=== PATIENT | male | born 1940 | race Caucasian/White ===

== ENCOUNTER → 2017-05-16 | Outpatient (CLI) | payer MEDICARE, BC ==
[~2017-05-16] MED LIST: ANALGESIC325 MG PO; BENAZEPRIL HCL10 MG PO; FLOMAX PO; METOPROLOL 50 M50 M1 PO; NIASPAN750 MG PO; NORCO 7.5-3251 EACH PO; OMEGA-31000 MG PO; PHENAZOPYRIDIN200 M2 PO; URISPAS100 MG PO; VYTORIN 10-401 EACH PO
--- NOTE | 2017-05-29 22:04 | ONC ---
[address] [address] RADIATION ONCOLOGY NOTE Name: VLADSAMEERA MERLIN Room: [facility].#: [id number] Admission: 05/16/17 Attend Phys: Omi Ferraro MD Discharge: Date of : 44 Report #: [id number] THIS REPORT FOR: //name// CC: Omi Garduno MD DATE OF SERVICE: 05/16/2017 REFERRING PHYSICIAN: Zuhair Garduno MD [facility] phone is [phone]. 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 The PSA was 12.4 on 02/11/2009. The Merry score was 4+3 equal 7. The patient received definitive radiation therapy with androgen suppression. The patient received Lupron on 02/13/[address] Osborne and a second Lupron injection was given around 05/2009 or 06/2009. The patient's definitive radiation treatments were completed on 05/20/2009. INTERVAL NOTE: The patient felt like he was emptying his bladder well. MEDICATIONS: Include Crestor, generic Zetia, benazepril, carvedilol, fish oil, aspirin, Eplerenone. 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 Cigarettes: he does not smoke. REVIEW OF SYSTEMS: GENITOURINARY: He has nocturia about every 2 hours and that has been stable since his last appointment. GASTROINTESTINAL: He has about 1 bowel movement a day and that has been stable. PHYSICAL EXAMINATION: VITAL SIGNS: The patient weighs 209.8 pounds on 05/16/2017 and 208 pounds on 05/07/2016, and on 05/16/2017 blood pressure was 111/60, pulse 54, respirations 24. BACK: No tenderness to palpation. HEART: Had a regular rate and rhythm without murmur. LUNGS: were clear to auscultation. RECTAL: Prostate was not enlarged. The patient was guaiac negative using [employer] Hemoccult cards from lot [id number] that expires in 05/2019, using [employer] Hemoccult developer from lot [id number] that expires in 12/2019. LABORATORY DATA: PSA from 05/03/2017 was 0.3. ASSESSMENT AND PLAN: [place] [address] RADIATION ONCOLOGY NOTE Name: SAMEERA CHU Room: [facility]#: [id number] Admission: 05/16/17 Attend Phys: Omi Ferraro MD Discharge: Date of : 44 Report #: [id number] 1. History of prostate cancer- There is no evidence of prostate cancer at this time. A requisition was written for a PSA in 04/2018. The patient was asked to schedule a follow up appointment to see me afterwards. 2. Hyperlipidemia- The patient takes Crestor under the guidance of his referring physicians. 3. Hypertension- The patient takes benazepril and that is managed by his referring physicians. Thank you for allowing me to participate in the care of this patient. <ELECTRONICALLY SIGNED> By: Omi Ferraro MD 05/29/17 2204 1627 1922Ddario Ferraro MD /nt
== END ==
LOC: M.RTH 05-11 09:30
DX: Z08 Encounter for follow-up examination after completed treatment for malignant neoplasm (principal); E78.5 Hyperlipidemia, unspecified; I10 Essential (primary) hypertension; Z85.46 Personal history of malignant neoplasm of prostate

== ENCOUNTER → 2018-05-12 | Outpatient (CLI) | payer MEDICARE, BC ==
--- NOTE | ~2018-05-12 | ONC ---
[address] [address] RADIATION ONCOLOGY NOTE Name: SAMEERA CHU Room: [facility]#: [id number] Admission: 05/12/18 Attend Phys: Omi Ferraro MD Discharge: Date of : 44 Report #: [id number] THIS REPORT FOR: //name// CC: Omi Ferraro NO PCP DATE OF SERVICE: 05/12/2018 REFERRING PHYSICIANS: Zuhair Garduno MD. [facility] phone is [phone]. PRIMARY SITE AND HISTOPATHOLOGY: The patient had a stage 2 T2a N0 M0 adenocarcinoma of the prostate. The PSA was 12.4 on 02/11/2009. The Merry score was 4+3 equal 7. The patient received definitive radiation therapy with androgen suppression. The patient received Lupron on 02/13/[address] Osborne and a second Lupron injection was given around 05/2009 or 06/2009. The patient's definitive radiation treatments were completed on 05/20/2009. INTERVAL NOTE: The patient felt like he was emptying his bladder well. He has a good appetite. MEDICATIONS: Include Crestor, Zetia, benazepril, carvedilol, fish oil, aspirin, eplerenone. 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 Cigarettes, he does not smoke cigarettes. REVIEW OF SYSTEMS: GENITOURINARY: He has nocturia about every 2 hours and has been stable since at least his last couple of appointments. GASTROINTESTINAL: He has about 1-2 bowel movements a day and that has been stable. PHYSICAL EXAMINATION: VITAL SIGNS: The patient weighed 217.6 pounds on 05/12/2018 and 209.8 pounds on 05/16/2017 and on 05/12/2018, blood pressure was 117/84, pulse 59, respirations 18, oxygen saturation 96%. BACK: No tenderness to palpation. HEART: Had a regular rate and rhythm without murmur. LUNGS: Clear to auscultation. RECTAL: Prostate was not enlarged. There were no palpable nodules. The patient was guaiac negative using [employer] Hemoccult cards from lot [id number] that in 05/2019, using [employer] Hemoccult developer from lot [id number] that expires in 12/2019. [place] [address] RADIATION ONCOLOGY NOTE Name: SAMEERA CHU Room: [facility]#: [id number] Admission: 05/12/18 Attend Phys: Omi Ferraro MD Discharge: Date of : 44 Report #: [id number] LABORATORY DATA: PSA on 05/02/2018 was 0.3. Prior PSA on 05/03/2017 was also 0.3. ASSESSMENT AND PLAN: 1. History of prostate cancer. There is no evidence of prostate cancer. The patient was given a requisition for a PSA in 04/2019 or 05/2019 and he was asked to schedule a followup appointment to see me afterwards. 2. Hyperlipidemia. The patient takes Crestor that is managed by his referring physicians. 3. Hypertension. The patient takes benazepril that is managed by his referring physicians. Thank you for allowing me to participate in the care of this patient. By: [id number] Ferraro MD /nt
== END ==
LOC: M.RTH 09:00
DX: Z08 Encounter for follow-up examination after completed treatment for malignant neoplasm (principal); I10 Essential (primary) hypertension; E78.5 Hyperlipidemia, unspecified; Z85.46 Personal history of malignant neoplasm of prostate

== ENCOUNTER → 2019-06-15 | Outpatient (CLI) | payer MEDICARE, BC ==
--- NOTE | 2019-06-16 22:55 | ONC ---
[place] [address] RADIATION ONCOLOGY NOTE Name: SAMEERA CHU Room: [facility]#: [id number] Admission: 06/15/19 Attend Phys: Omi Ferraro MD Discharge: Date of : 44 Report #: [id number] THIS REPORT FOR: //name// CC: Omi Garduno MD DATE OF SERVICE: 06/15/2019 RADIATION ONCOLOGY FOLLOWUP NOTE REFERRING PHYSICIAN: Zuhair Garduno MD. [facility], phone is [phone]. PRIMARY SITE AND HISTOPATHOLOGY: The patient had a stage T2a N0 M0 adenocarcinoma of the prostate. The PSA was 12.4 on 02/11/2009. The Merry score was 4+3 equal 7. The patient received definitive radiation therapy with androgen suppression. The patient received Lupron on 02/13/[address] Osborne and a second Lupron injection was given around 05/2009 or 06/2009. The patient's definitive radiation treatments were completed on 05/20/2009. INTERVAL NOTE: The patient felt like he was emptying his bladder well. He has a good appetite. MEDICATIONS: Crestor, Zetia, benazepril, carvedilol, fish oil, aspirin and eplerenone. 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 Cigarettes; he does not smoke cigarettes. REVIEW OF SYSTEMS: GENITOURINARY: He has nocturia about every 2 hours and has been stable since at least his last couple of appointments. GASTROINTESTINAL: He has about 1-2 bowel movements a day and that has been stable. PHYSICAL EXAMINATION: VITAL SIGNS: The patient weighed 203.4 pounds on 06/15/2019, he was 217.6 pounds on 05/12/2018, he was 209.8 pounds on 05/16/2017, and on 06/15/2019 blood pressure was 98/60, temperature 97.3 degrees Fahrenheit, respirations 20, pulse 51, oxygen 95%. BACK: [place] [address] RADIATION ONCOLOGY NOTE Name: SAMEERA CHU Room: [facility]#: [id number] Admission: 06/15/19 Attend Phys: Omi Ferraro MD Discharge: Date of : 44 Report #: [id number] HEART: Had a regular rate and rhythm without murmur. LUNGS: were clear to auscultation. RECTAL: Prostate was not enlarged. There were no palpable nodules. The patient was guaiac negative using [employer] Hemoccult cards with developer from lot #[id number] that expires on 12/2019. LABORATORY DATA: PSA was 0.4 on 05/02/2019, 0.3 on 05/02/2018, and it was 0.55 on 04/28/2016. ASSESSMENT AND PLAN: 1. History of prostate cancer- There is no evidence of prostate cancer at this time. The patient was given a requisition for a PSA in 04/2020 or 05/2020 and the patient was asked to schedule a follow up appointment to see me afterwards. 2. Hyperlipidemia- The patient takes Crestor and that is managed by his referring physicians. 3. Hypertension-The patient takes benazepril and that is managed by his referring physicians. Thank you for allowing me to participate in the care of this patient. <ELECTRONICALLY SIGNED> By: Omi Ferraro MD 06/16/19 2255 1536 [id number] Ferraro MD /nt
== END ==
LOC: M.RTH 05-18 09:00
DX: Z08 Encounter for follow-up examination after completed treatment for malignant neoplasm (principal); E78.5 Hyperlipidemia, unspecified; I10 Essential (primary) hypertension; Z85.46 Personal history of malignant neoplasm of prostate

== ENCOUNTER → 2020-06-13 | Outpatient (CLI) | payer MEDICARE, BC ==
--- NOTE | 2020-06-15 21:44 | ONC ---
[address] [address] RADIATION ONCOLOGY NOTE Name: VLADSAMEERA J Room: [facility].#: [id number] Admission: 06/13/20 Attend Phys: Omi Ferraro MD Discharge: Date of : 44 Report #: [id number] THIS REPORT FOR: cc: [facility] - Clinic physician unknown [facility] - Clinic physician unknown Omi Ferraro MD ~ DATE OF SERVICE: 06/13/2020 Cc:Zuhair Garduno MD RADIATION ONCOLOGY FOLLOWUP NOTE [facility] phone is [phone]. PRIMARY SITE AND HISTOPATHOLOGY: The patient had a stage T2a N0 M0 adenocarcinoma of the prostate. The PSA was 12.4 on 02/11/2009. The [place] score was 4+3 equal 7. The patient received definitive radiation therapy with androgen suppression. The patient received Lupron on 02/13/[address] Osborne and a second Lupron injection was given around 05/2009 or 06/2009. The patient's definitive radiation therapy was completed on 05/20/2009. INTERVAL NOTE: The patient felt like he was emptying his bladder well. He also has a good appetite. MEDICATIONS: Include Crestor, Zetia, benazepril, carvedilol, fish oil, aspirin and eplerenone. 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 Cigarettes: He does not smoke cigarettes. REVIEW OF SYSTEMS: GENITOURINARY: He has nocturia about 4 times a night and that has been stable for years. GASTROINTESTINAL: He has about 1-2 bowel movements a day and has been stable. PHYSICAL EXAMINATION: VITAL SIGNS: The patient weighed 198 pounds on 06/13/2020 and 203.4 pounds on 06/15/2019. On 06/13/2020, blood pressure was 116/71, pulse was 49, temperature 98.2 degrees Fahrenheit, oxygen saturation 97%, respirations were 20. HEART: Had a regular rate and rhythm without murmur. LUNGS: were clear to auscultation. RECTAL: Prostate was not enlarged. There were no palpable nodules. The patient was guaiac negative using [employer] Hemoccult cards. Hemoccult cards was from lot [id number], expires in 11/2021 using [employer] Hemoccult developer from lot [id number] expires in 01/2022. [place] [address] RADIATION ONCOLOGY NOTE Name: SAMEERA CHU Room: [facility]#: [id number] Admission: 06/13/20 Attend Phys: Omi Ferraro MD Discharge: Date of : 44 Report #: [id number] LABORATORY DATA: The patient's PSA was 0.3 on 06/06/2020, it was 0.4 on 05/02/2019. ASSESSMENT AND PLAN: 1. History of prostate cancer- There is no evidence of prostate cancer at this time. The patient was given a requisition for a PSA in 05/2021 or 06/2021 and he was asked to follow up with me afterwards. The patient indicated that he received his first injection of his COVID vaccine several weeks ago and that he is due for his second injection of the COVID-19 vaccine sometime around 06/15 or 06/16. 2. Hyperlipidemia- The patient takes Crestor and that is managed by his referring physicians. 3. Hypertension- The patient takes benazepril and that is managed by his referring physicians. Thank you for allowing me to participate in the care of this patient. <ELECTRONICALLY SIGNED> By: Omi Ferraro MD 06/15/20 2144 1027 [id number] Ferraro MD /nt
== END ==
LOC: M.RTH 09:00
PROVIDERS: ATTEND Radiology Radiation Oncology
DX: Z85.46 Personal history of malignant neoplasm of prostate (principal)